=== PATIENT | male | born 1980 | race Caucasian/White ===

== ENCOUNTER 2021-10-08 13:10 | Inpatient (IN) ==
[2021-10-08 14:59] LABS: Basophils # 0.1 K/mcL (0.0-0.2); Basophils % 0.9 %; Eosinophils # 1.2 K/mcL (0.0-0.6); Eosinophils % 18.3 %; Hematocrit 33.7 % (37.5-50.1); Hemoglobin 10.4 g/dL (12.9-16.9); Immature Granulocytes % 0.3 % (0-4); Lymphocytes # 0.4 K/mcL (0.6-4.6); Lymphocytes % 5.3 %; Mean Corpuscular HGB Conc 30.9 g/dL (31.6-35.5); Mean Corpuscular Hemoglobin 28.7 pg (28.0-33.3); Mean Corpuscular Volume 92.8 fL (83.0-100.0); Mean Platelet Volume 9.3 fL (9.4-12.4); Monocytes # 0.7 K/mcL (0.0-1.3); Monocytes % 10.5 %; Neutrophils # 4.3 K/mcL (1.6-8.9); Platelet Count 236 K/mcL (140-400); Red Blood Count 3.63 M/mcL (4.19-5.50); Red Cell Distribution Width 15.2 % (11.5-14.5); Segmented Neutrophils % 64.7 %; White Blood Count 6.6 K/mcL (4.3-11.1)
[2021-10-08 15:05] LABS: Bilirubin,Urine Negative (Negative); Blood,Urine Negative (Negative); Clarity,Urine Clear (Clear); Color,Urine Colorless (Yellow); Glucose,Urine (UA) Normal (Normal); Ketones,Urine Negative (Negative); Leukocyte Esterase,Urine Negative (Negative); Nitrite,Urine Negative (Negative); PH,Urine 6.5 pH Units (5.0-8.0); Protein,Urine Negative (Neg-Trace); Specific Gravity,Urine 1.008 (1.010-1.025); Urobilinogen,Urine Normal (Normal)
[2021-10-08 15:21] LABS: Calcium 9.2 mg/dL (8.6-10.3); Potassium 3.7 mEq/L (3.5-5.1)
[2021-10-08] MEDS ORDERED: 0.9 % Sodium Chloride 1,000 ML IVC ONE (19:45)
[2021-10-08] MEDS ORDERED: Acetaminophen 325 MG TABLET PO PRN (20:03)
[2021-10-08] MEDS ORDERED: Naloxone 0.4 MG/ML INJ IVP PRN (20:03)
[2021-10-08] MEDS ORDERED: Ondansetron 4 MG/2 ML VIAL IVP PRN (20:03)
[2021-10-08] MEDS ORDERED: Dextrose Gel 15 GM/37.5 ML TUBE PO PRN ×2 (21:27)
[2021-10-08] MEDS ORDERED: *HR* Dextrose 50 % in Water (Syg) 50 ML SYRINGE IVP PRN (21:27)
[2021-10-08] MEDS ORDERED: D5% in Water 1,000 ML IVC PRN (21:27)
[2021-10-08] MEDS: 0.9 % Sodium Chloride 1,000 ML IVC SCH (22:21)
[2021-10-08] MEDS ORDERED: *HR* LORazepam 1 MG TABLET PO PRN (22:23)
[2021-10-08] MEDS ORDERED: *HR* FentaNYL PATCH 25 MCG PATCH TD SCH (22:30)
[2021-10-08] MEDS: *HR* Heparin 5,000 UNIT/ML VIAL SQ SCH (22:49)
[2021-10-08 23:29] LABS: Sodium, Urine 18.5 mEq/L
[2021-10-09] LABS: Influenza A PCR Negative (Negative); Influenza B PCR Negative (Negative); Resp. Syncytial Virus PCR Negative (Negative)
[2021-10-09 00:21] LABS: SARS-CoV-2 by PCR (In House) Negative (Negative)
[2021-10-09] MEDS ORDERED: *HR* LORazepam 1 MG TABLET PO PRN (01:20)
[2021-10-09 01:25] LABS: Basophils # 0.1 K/mcL (0.0-0.2); Basophils % 0.9 %; Eosinophils # 1.4 K/mcL (0.0-0.6); Eosinophils % 24.3 %; Hematocrit 28.7 % (37.5-50.1); Immature Granulocytes % 0.2 % (0-4); Lymphocytes # 0.5 K/mcL (0.6-4.6); Lymphocytes % 8.4 %; Mean Corpuscular HGB Conc 31.4 g/dL (31.6-35.5); Mean Corpuscular Volume 92.6 fL (83.0-100.0); Mean Platelet Volume 9.8 fL (9.4-12.4); Monocytes # 0.5 K/mcL (0.0-1.3); Monocytes % 9.4 %; Platelet Count 234 K/mcL (140-400); Red Cell Distribution Width 15.2 % (11.5-14.5); Segmented Neutrophils % 56.8 %; White Blood Count 5.7 K/mcL (4.3-11.1)
[2021-10-09 01:29] LABS: Neutrophils # 3.2 K/mcL (1.6-8.9)
[2021-10-09 01:31] LABS: Prothrombin Time 11.6 Seconds (9.4-12.1)
[2021-10-09 01:33] LABS: Activated Partial Thrombo Time 30.7 Seconds (26.0-36.0)
[2021-10-09 01:43] LABS: Albumin 3.3 g/dL (3.5-5.7); Albumin/Globulin Ratio 1.4 (1.1-2.2); Bilirubin,Total 0.2 mg/dL (0.3-1.0); Calcium 8.2 mg/dL (8.6-10.3); Globulin 2.4 g/dL (2.4-3.5); Magnesium 2.9 mg/dL (1.6-2.6); Phosphorous 6.4 mg/dL (2.7-4.5); Potassium 3.8 mEq/L (3.5-5.1); Total Protein 5.7 g/dL (6.4-8.9)
[2021-10-09 01:47] LABS: Iron 26 mcg/dL (65-175)
[2021-10-09 02:02] LABS: Ferritin 140 ng/mL (20-250)
[2021-10-09 02:08] LABS: Folate 8.3 ng/mL (3.0-16.0)
[2021-10-09] MEDS: *HR* OxyCODONE Immed Rel 5 MG TABLET PO PRN ×4 (02:54→20:38)
[2021-10-09 03:36] LABS: % Iron Saturation 9 % (20-55); Transferrin 198 mg/dL (203-362)
[2021-10-09] MEDS: *HR* Heparin 5,000 UNIT/ML VIAL SQ SCH ×3 (05:31→20:38)
[2021-10-09] MEDS: 0.9 % Sodium Chloride 1,000 ML IVC SCH (08:05)
[2021-10-09] MEDS ORDERED: Ampicillin/Sulbactam 1,500 MG in 0.9 % Sodium Chloride Mini Bag 100 ML IVPB ONE (14:40)
[2021-10-09] MEDS ORDERED: *HR* FentaNYL (PF) 100 MCG/2 ML VIAL IVP ONE ×2 (14:40→14:50)
[2021-10-09] MEDS ORDERED: *HR* Midazolam HCl 2 MG/2 ML VIAL IVP ONE ×2 (14:41→14:50)
[2021-10-09] MEDS ORDERED: Lidocaine/EPI 1:100k 1% 50 ML VIAL ONE (14:42)
[2021-10-09] MEDS ORDERED: 0.9 % Sodium Chloride 500 ML ONE ×2 (14:42→14:46)
[2021-10-09] MEDS ORDERED: Isovue-300 50ML VIAL IVP ONE (15:14)
[2021-10-09] MEDS ORDERED: 0.9 % Sodium Chloride 1,000 ML IV ONE (22:32)
[2021-10-10] MEDS: *HR* Heparin 5,000 UNIT/ML VIAL SQ SCH ×3 (04:48→20:19)
[2021-10-10] MEDS: *HR* OxyCODONE Immed Rel 5 MG TABLET PO PRN ×4 (04:48→17:59)
[2021-10-10 06:58] LABS: Hemoglobin 9.3 g/dL (12.9-16.9); Mean Corpuscular Hemoglobin 28.8 pg (28.0-33.3); Mean Corpuscular Volume 92.9 fL (83.0-100.0); Mean Platelet Volume 9.9 fL (9.4-12.4); Platelet Count 235 K/mcL (140-400); Red Blood Count 3.23 M/mcL (4.19-5.50); Red Cell Distribution Width 15.3 % (11.5-14.5); White Blood Count 6.6 K/mcL (4.3-11.1)
[2021-10-10 07:20] LABS: Calcium 8.5 mg/dL (8.6-10.3); Potassium 3.6 mEq/L (3.5-5.1)
[2021-10-10] MEDS ORDERED: 0.9 % Sodium Chloride 1,000 ML IVC SCH (08:45)
[2021-10-10] MEDS ORDERED: *HR* FentaNYL PATCH 25 MCG PATCH TD SCH (15:00)
[2021-10-11 00:56] LABS: Hematocrit 32.5 % (37.5-50.1); Mean Corpuscular HGB Conc 30.8 g/dL (31.6-35.5); Mean Corpuscular Hemoglobin 28.4 pg (28.0-33.3); Mean Corpuscular Volume 92.3 fL (83.0-100.0); Mean Platelet Volume 9.4 fL (9.4-12.4); Platelet Count 236 K/mcL (140-400); Red Blood Count 3.52 M/mcL (4.19-5.50); Red Cell Distribution Width 15.1 % (11.5-14.5); White Blood Count 5.2 K/mcL (4.3-11.1)
[2021-10-11 01:14] LABS: Calcium 8.7 mg/dL (8.6-10.3); Iron 365 mcg/dL (65-175); Potassium 3.5 mEq/L (3.5-5.1)
[2021-10-11 02:56] LABS: % Iron Saturation 143 % (20-55); Transferrin 182 mg/dL (203-362)
[2021-10-11] MEDS: *HR* Heparin 5,000 UNIT/ML VIAL SQ SCH (04:46)
[2021-10-11 08:54] VITALS: BP 144/81; PULSE 85; TEMP 97.6; O2SAT 95
[2021-10-11] MEDS: *HR* OxyCODONE Immed Rel 5 MG TABLET PO PRN (08:57)
== END 2021-10-11 10:45 | disposition home or self-care (01) | DRG 683 ==
LOC: SUATTDRO → EMEROOARM 13:10 → 3BNU 13:10 → SUATTDRO 20:18 → 3BNU 20:42
PROVIDERS: ADMIT Internal Medicine; ATTEND Registered Nurse